=== PATIENT | female | born 1995 | race Caucasian/White ===

== ENCOUNTER 2022-05-31 07:11 | Inpatient (IN) | payer OTHER ==
[2022-05-31] MEDS ORDERED: Zofran 4 MG/2 ML VIAL IV PRN (07:17)
[2022-05-31] MEDS ORDERED: XYLOCAINE 1% HCL 20 ML MDV IJ PRN (07:17)
[2022-05-31] MEDS ORDERED: STADOL 2 MG IV PRN (07:17)
[2022-05-31 07:28] LABS: Absolute Neutrophil Ct (ANC) 14.91 x10^3/uL (1.4-6.9); Basophil (Absolute #) 0.04 x10^3/uL (0-0.4); Eosinophil (Absolute #) 0 x10^3/uL (0-0.5); Hematocrit 37.2 % (35-47); Lymphocyte (Absolute #) 0.88 x10^3/uL (1.0-4.6); Lymphocytes % 5.4 % (24.0-44.0); Mean Cell Volume 92.3 fL (78-100); Mean Corpuscular Hemoglobin 29.8 pg (26-32); Mean Corpuscular Hgb Concent. 32.3 g/dL (32-36); Mean Platelet Volume 10.3 fL (7.5-11.0); Monocyte (Absolute #) 0.47 x10^3/uL (0.0-1.3); Monocytes % 2.9 % (0.0-12.0); Neutrophil % 90.9 % (36.0-66.0); Platelet Count 178 x10^3/uL (150-450); Red Blood Count 4.03 x10^6/uL (4.1-5.4); Red Cell Distribution Width 19.6 % (11.5-14.0); White Blood Count 16.4 x10^3/uL (4.0-10.5)
[2022-05-31] MEDS ORDERED: PITOCIN 30 UNITS/ LR 500 ML 30 UNITS/500 ML PLAST..BAG IV SCH (07:30)
[2022-05-31] MEDS ORDERED: SUBLIMAZE 100 MCG/2 ML ONE (07:44)
[2022-05-31 08:07] LABS: ABO TYPING A; Antibody Screen NEGATIVE (NEGATIVE); RH TYPING NEGATIVE
[2022-05-31] MEDS ORDERED: TUCKS TP PRN (09:47)
[2022-05-31] MEDS ORDERED: LANSINOH 40 GM TOP PRN (09:47)
[2022-05-31] MEDS ORDERED: Dermoplast Spray TP PRN (10:00)
[2022-05-31] MEDS ORDERED: FERREX 150 PO SCH (10:00)
[2022-05-31] MEDS ORDERED: FENTANYL 2 MCG-BUPIV 0.125%-NS 250 ML Epidur 250 ML EPIDURAL SCH (10:00)
[2022-05-31] MEDS ORDERED: Rhogam Plus 300 MCG IM ONE (10:13)
[2022-05-31] MEDS ORDERED: Adacel Vial IM ONE (11:00)
[2022-05-31] MEDS: Lactated Ringers 1,000 ML IV SCH ×2 (11:06→11:07)
[2022-05-31] MEDS: MOTRIN 400 MG PO PRN ×2 (17:03→23:06)
[2022-05-31] MEDS: TYLENOL EXTRA STRENGTH 500 MG PO PRN (20:12)
[2022-05-31] MEDS: Docusate Sodium 100 MG PO SCH (23:07)
[2022-06-01] MEDS: TYLENOL EXTRA STRENGTH 500 MG PO PRN ×2 (02:46→12:03)
[2022-06-01 05:52] LABS: Absolute Neutrophil Ct (ANC) 9.71 x10^3/uL (1.4-6.9); Basophil (Absolute #) 0.03 x10^3/uL (0-0.4); Eosinophil % 0.2 % (0.00-5.0); Eosinophil (Absolute #) 0.02 x10^3/uL (0-0.5); Hematocrit 33.3 % (35-47); Hemoglobin 10.4 g/dL (12.0-16.0); Lymphocyte (Absolute #) 1.65 x10^3/uL (1.0-4.6); Lymphocytes % 13.7 % (24.0-44.0); Mean Cell Volume 93.5 fL (78-100); Mean Corpuscular Hemoglobin 29.2 pg (26-32); Mean Corpuscular Hgb Concent. 31.2 g/dL (32-36); Mean Platelet Volume 10.5 fL (7.5-11.0); Monocyte (Absolute #) 0.58 x10^3/uL (0.0-1.3); Monocytes % 4.8 % (0.0-12.0); Neutrophil % 80.4 % (36.0-66.0); Platelet Count 181 x10^3/uL (150-450); Red Blood Count 3.56 x10^6/uL (4.1-5.4); Red Cell Distribution Width 19.9 % (11.5-14.0); White Blood Count 12.1 x10^3/uL (4.0-10.5)
--- NOTE | 2022-06-01 07:44 | PCM.DS ---
Discharge Summary Date of Admission: 05/31/22 07:11 Admitting Physician: ERICK CHAND Consults: Consults on Case 05/31/22 14:09 Navigation ONCE Primary Care Provider: ERICK CHAND Allergies Allergies No Known Drug Allergies Allergy (Unverified 05/31/22 21:43) Hospital Summary - Hospital Course Hospital Course: 27yo at 41wks JHONATHAN arrived in spont labor, care with welcome desk agent, decided to come to the hospital during labor. had an uncomplicated with epidural. and doing great. mild lochia, minimal pain. requesting discharge to home today. - Vitals & Intake/Output Vital Signs: Vital Signs Temperature 98.9 F 06/01/22 02:00 Pulse Rate 72 06/01/22 02:00 Respiratory Rate 18 06/01/22 02:00 Blood Pressure 93/55 06/01/22 02:00 O2 Sat by Pulse Oximetry 98 06/01/22 02:00 Intake & Output: Intake & Output 05/29/22 05/30/22 05/31/22 06/01/22 11:59 11:59 11:59 11:59 Intake Total 500 Balance 500 Weight 64.864 kg 64.864 kg - Lab Result Diagrams: 06/01/22 05:45 Lab Results-Last 24 Hrs: Lab Results-Last 24 Hours 05/31/22 05/31/22 05/31/22 Range/Units 07:19 07:19 10:17 WBC 16.4 H (4.0-10.5) x10^3/uL Corrected WBC (auto) [employer] RBC 4.03 L (4.1-5.4) x10^6/uL Hgb 12.0 (12.0-16.0) g/dL Hct 37.2 (35-47) % MCV 92.3 (78-100) fL MCH 29.8 (26-32) pg MCHC 32.3 (32-36) g/dL RDW 19.6 H (11.5-14.0) % Plt Count 178 (150-450) x10^3/uL MPV 10.3 (7.5-11.0) fL Gran % 90.9 H (36.0-66.0) % Immature Gran % (Auto) 0.6 H (0.00-0.4) % Nucleat RBC Rel Count 0.0 (0.00-0.1) % Eos # (Auto) 0 (0-0.5) x10^3/uL Immature Gran # (Auto) 0.10 H (0.00-0.03) x10^3u/L Absolute Lymphs (auto) 0.88 L (1.0-4.6) x10^3/uL Absolute Monos (auto) 0.47 (0.0-1.3) x10^3/uL Absolute Nucleated RBC 0.00 (0.00-0.01) x10^3u/L Lymphocytes % 5.4 L (24.0-44.0) % Monocytes % 2.9 (0.0-12.0) % Eosinophils % 0.0 (0.00-5.0) % Basophils % 0.2 (0.0-0.4) % Absolute Granulocytes 14.91 H (1.4-6.9) x10^3/uL Basophils # 0.04 (0-0.4) x10^3/uL Slides for Path Review TISSUE SPECIALIST ABO Group A Rh Factor NEGATIVE Antibody Screen NEGATIVE (NEGATIVE) Screen SEE SEPARATE REPORT 06/01/22 Range/Units 05:45 WBC 12.1 H (4.0-10.5) x10^3/uL Corrected WBC (auto) RBC 3.56 L (4.1-5.4) x10^6/uL Hgb 10.4 L (12.0-16.0) g/dL Hct 33.3 L (35-47) % MCV 93.5 (78-100) fL MCH 29.2 (26-32) pg MCHC 31.2 L (32-36) g/dL RDW 19.9 H (11.5-14.0) % Plt Count 181 (150-450) x10^3/uL MPV 10.5 (7.5-11.0) fL Gran % 80.4 H (36.0-66.0) % Immature Gran % (Auto) 0.7 H (0.00-0.4) % Nucleat RBC Rel Count 0.0 (0.00-0.1) % Eos # (Auto) 0.02 (0-0.5) x10^3/uL Immature Gran # (Auto) 0.08 H (0.00-0.03) x10^3u/L Absolute Lymphs (auto) 1.65 (1.0-4.6) x10^3/uL Absolute Monos (auto) 0.58 (0.0-1.3) x10^3/uL Absolute Nucleated RBC 0.00 (0.00-0.01) x10^3u/L Lymphocytes % 13.7 L (24.0-44.0) % Monocytes % 4.8 (0.0-12.0) % Eosinophils % 0.2 (0.00-5.0) % Basophils % 0.2 (0.0-0.4) % Absolute Granulocytes 9.71 H (1.4-6.9) x10^3/uL Basophils # 0.03 (0-0.4) x10^3/uL Slides for Path Review ABO Group Rh Factor Antibody Screen (NEGATIVE) Screen Discharge Exam General Appearance: no apparent distress Neurologic Exam: alert, oriented x 3 Respiratory Exam: normal breath sounds, lungs clear, No respiratory distress Cardiovascular Exam: regular rate/rhythm, normal heart sounds Gastrointestinal/Abdomen Exam: soft, other (fundus firm), No tenderness, No mass Extremity Exam: normal inspection, normal range of motion Final Diagnosis/Problem List - Final Discharge Diagnosis/Problem (1) Normal vaginal delivery Current Visit: Yes Status: Acute Code(s): O80 - ENCOUNTER FOR FULL-TERM UNCOMPLICATED DELIVERY (2) () Current Visit: Yes Status: Acute Code(s): Z78.9 - OTHER SPECIFIED HEALTH STATUS - Discharge Disposition: Home, Self-Care Condition: Stable Follow up with: ERICK CHAND MD [Primary Care Provider] - 6 weeks
[2022-06-01] MEDS: MOTRIN 400 MG PO PRN ×2 (07:51→16:44)
[2022-06-01] MEDS: Docusate Sodium 100 MG PO SCH (07:52)
[2022-06-01 10:15] VITALS: BP 104/56; PULSE 81; O2SAT 97
[2022-06-02 11:39] LABS: RPR Non Reactive (Non Reactive)
== END 2022-06-01 16:50 | disposition home or self-care (01) | DRG 807 ==
LOC: OB 07:11 → OBSVTOIN 07:11
PROVIDERS: ADMIT Family Medicine; ATTEND Family Medicine
PROC: 10E0XZZ Delivery of Products of Conception, External Approach (ICD-10-PCS; principal; 2022-05-31)
DX: O80 Encounter for full-term uncomplicated delivery (principal); Z37.0 Single live birth; Z3A.41 41 weeks gestation of pregnancy; Z20.828 Contact with and (suspected) exposure to other viral communicable diseases
CPT/HCPCS: 36415; 85025; 85461; 86592; 86850; 86900; 86901; 90472; 90715; 96372; J2590; J2790; J3010; A9270-GY